=== PATIENT | male | born 1990 | race African-American/Black ===

== ENCOUNTER 2018-01-30 15:55 | Emergency (ER) | payer SELFPAY ==
[~2018-01-30] VITALS: Ht 195.6 cm; Wt 81.6 kg
[2018-01-30] MEDS ORDERED: TETANUS/DIPHTHERIA TOX ADULT 0.5 ML SYR IM ONE (16:15)
[2018-01-30] MEDS ORDERED: HYDROCODONE/APAP 10MG-325MG TAB PO ONE (16:15)
[2018-01-30] MEDS ORDERED: HYDROCODONE/APAP 10MG-325MG TAB ONE (16:27)
[2018-01-30] MEDS ORDERED: TETANUS/DIPHTHERIA TOX ADULT 0.5 ML SYR ONE (16:28)
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
== END 2018-01-30 19:16 | disposition home or self-care (01) ==
LOC: ER 15:57
DX: S62.312A Displaced fracture of base of third metacarpal bone, right hand, initial encounter for closed fracture (principal); S62.314A Displaced fracture of base of fourth metacarpal bone, right hand, initial encounter for closed fracture; S62.336A Displaced fracture of neck of fifth metacarpal bone, right hand, initial encounter for closed fracture; W22.09XA Striking against other stationary object, initial encounter; Y92.008 Other place in unspecified non-institutional (private) residence as the place of occurrence of the external cause; X83.8XXA Intentional self-harm by other specified means, initial encounter; F17.210 Nicotine dependence, cigarettes, uncomplicated
CPT/HCPCS: 90714; 99283